=== PATIENT | male | born 1955 | race Caucasian/White ===

== ENCOUNTER 2020-12-03 13:44 | Inpatient (IN) | payer MEDICAID ==
[~2020-12-03] VITALS: Ht 177.8 cm; Wt 67.4 kg
[2020-12-03] MEDS ORDERED: PIPERACILLIN/TAZ 3.375G PREMIX 50 ML IV NR (15:15)
[2020-12-03] MEDS ORDERED: SODIUM CHLORIDE 0.9% 1000ML BAG (SEPSIS BOLUS) IV ONE (15:15)
[2020-12-03] MEDS ORDERED: VANCOMYCIN 750 MG PREMIX 150 ML IV SCH (15:15)
[2020-12-03] MEDS ORDERED: PIPERACILLIN/TAZOBACTAM 3.375GM/50ML PREMIX IV ONE (15:15)
[2020-12-03] MEDS ORDERED: TETANUS, DIPHTHERIA, PERTUSSIS VAC/PF 0.5ML (>7YR OLD) IM ONE (15:30)
[2020-12-03 15:47] LABS: BASOPHILS % 0.5 % (0.0-2.0); HEMATOCRIT. 40.5 % (42.0-52.0); HEMOGLOBIN. 14.1 g/dL (14.0-18.0); LYMPHOCYTES % 47.6 % (20.0-50.0); MEAN CORPUSCULAR HEMOGLOBIN 34.8 pg (28.0-32.0); MEAN CORPUSCULAR VOLUME 99.6 fL (80.0-94.0); MEAN PLATELET VOLUME 6.8 fl (7.4-10.4); NEUTROPHILS % 37.9 % (40.0-76.0); PLATELET 200 x1000/uL (130-400); RED BLOOD CELL COUNT 4.06 mill/uL (4.7-6.1); RED CELL DISTRIBUTION WIDTH 14.9 % (11.6-14.6)
[2020-12-03 15:50] LABS: CHLORIDE 107 mEq/L (98-107)
[2020-12-03 15:52] LABS: PROTHROMBIN TIME 10.4 sec (9.6-11.0)
[2020-12-03] MEDS ORDERED: LORAZEPAM 1MG TABLET PO PRN (18:15)
[2020-12-03] MEDS ORDERED: POTASSIUM CHLORIDE 20MEQ TABLET SR PO SCH (18:15)
[2020-12-03 18:33] LABS: CLARITY URINE CLEAR (CLEAR); COLOR URINE DARK YELLOW (YELLOW); KETONES URINE TRACE (NEGATIVE); LEUKOCYTE ESTERASE URINE NEGATIVE (NEGATIVE); NITRITE URINE NEGATIVE (NEGATIVE); OCCULT BLOOD URINE NEGATIVE (NEGATIVE); PROTEIN URINE 1+ (NEGATIVE); SPECIFIC GRAVITY URINE 1.023 (1.005-1.030)
[2020-12-03 20:10] VITALS: BP 147/84
[2020-12-03] MEDS ORDERED: TIOT4MIS2 IH (20:36)
[2020-12-03] MEDS ORDERED: GABA-532 PO (20:36)
[2020-12-03] MEDS ORDERED: OMEP20TA2 PO (20:36)
[2020-12-03] MEDS ORDERED: DULO30CA52 PO (20:36)
[2020-12-03] MEDS ORDERED: BUDE10.26 IH (20:36)
[2020-12-03] MEDS ORDERED: FOLI-43 PO (20:36)
[2020-12-03] MEDS ORDERED: LORA-249 (20:36)
[2020-12-03] MEDS ORDERED: ATOR10TA69 PO (20:36)
[2020-12-03] MEDS ORDERED: LOSA25TA26 PO (20:36)
[2020-12-03] MEDS ORDERED: LEVO50TA8 PO (20:36)
[2020-12-03] MEDS ORDERED: DES150 PO (20:36)
[2020-12-03 20:39] VITALS: BP 147/84
[2020-12-03] MEDS ORDERED: THIAMINE HCL 100MG TABLET PO NR (21:00)
[2020-12-03] MEDS: GABAPENTIN 300MG CAPSULE PO SCH (21:21)
[2020-12-03] MEDS: ATORVASTATIN CALCIUM 20MG TABLET PO SCH (21:21)
[2020-12-03] MEDS: OMEPRAZOLE 20MG CAPSULE EXTENDED RELEASE PO SCH (21:21)
[2020-12-03] MEDS: TRAZODONE HCL 50MG TABLET PO SCH (21:21)
[2020-12-03] MEDS ORDERED: HYDROCODONE/ACETAMINOPHEN 5/325MG TABLET PO PRN (21:30)
[2020-12-03] MEDS: HYDROCODONE/ACETAMINOPHEN 5/325MG TABLET PO PRN (21:42)
[2020-12-03] MEDS: PIPERACILLIN/TAZOBACTAM 3.375G in DEXT 5% WATER 50ML IV SCH (21:51)
[2020-12-03] MEDS ORDERED: PIPERACILLIN/TAZOBACTAM 3.375 G/VIAL IV SCH (22:00)
[2020-12-04] VITALS (7 sets, daily range): BP systolic 107–155; BP diastolic 74–92
[2020-12-04] MEDS ORDERED: VANCOMYCIN 1250MG in DEXTROSE 5% WATER 250ML IV SCH
[2020-12-04] MEDS: LORAZEPAM 2MG/ML CPJ IV PRN ×3 (00:24→18:19)
[2020-12-04] MEDS: HYDROCODONE/ACETAMINOPHEN 5/325MG TABLET PO PRN ×3 (04:35→16:50)
[2020-12-04] MEDS: PIPERACILLIN/TAZOBACTAM 3.375G in DEXT 5% WATER 50ML IV SCH ×3 (05:09→21:28)
[2020-12-04] MEDS: GABAPENTIN 300MG CAPSULE PO SCH ×3 (05:15→21:28)
[2020-12-04] MEDS: OMEPRAZOLE 20MG CAPSULE EXTENDED RELEASE PO SCH (05:45)
[2020-12-04] MEDS: LEVOTHYROXINE SODIUM 50MCG TABLET PO SCH (05:45)
[2020-12-04] MEDS: FOLIC ACID 1MG TABLET PO SCH (08:57)
[2020-12-04] MEDS: MULTIVITAMINS,THER W-MINERALS TABLET PO SCH (08:57)
[2020-12-04] MEDS: LOSARTAN POTASSIUM 25 MG TABLET PO SCH (08:58)
[2020-12-04] MEDS ORDERED: ACETAMINOPHEN 325MG TABLET PO PRN (09:30)
[2020-12-04] MEDS: VANCOMYCIN 1500MG in DEXTROSE 5% WATER 250ML IV SCH (10:32)
[2020-12-04] MEDS ORDERED: IPRATROPIUM/ALBUTEROL 0.5-3(2.5)MG/3ML NEB HHN PRN (11:45)
[2020-12-04] MEDS: CHLORDIAZEPOXIDE 25MG CAPSULE PO SCH ×2 (13:02→21:28)
[2020-12-04] MEDS: ATORVASTATIN CALCIUM 20MG TABLET PO SCH (21:28)
[2020-12-04] MEDS: TRAZODONE HCL 50MG TABLET PO SCH (21:28)
[2020-12-04] MEDS: FAMOTIDINE 20MG TABLET PO SCH (21:28)
[2020-12-04 22:05] LABS: *AMPHETAMINES SCREEN URINE NEGATIVE (NEGATIVE); *BARBITURATES SCREEN URINE NEGATIVE (NEGATIVE)
[2020-12-04 22:06] LABS: *BENZODIAZEPINES SCREEN URINE PRESUMTIVE POSITIVE (NEGATIVE); *COCAINE SCREEN URINE NEGATIVE (NEGATIVE); METHADONE URINE SCREEN NEGATIVE (NEGATIVE); OPIATES URINE SCREEN PRESUMTIVE POSITIVE (NEGATIVE); PHENCYCLIDINE URINE SCREEN NEGATIVE (NEGATIVE)
[2020-12-04 22:07] LABS: CANNABINOID URINE SCREEN NEGATIVE (NEGATIVE)
[2020-12-05] MEDS: LORAZEPAM 2MG/ML CPJ IV PRN (00:37)
[2020-12-05] MEDS ORDERED: MAGNESIUM 2 G PREMIX 50 ML IV SCH (01:00)
[2020-12-05 03:45] LABS: HEMATOCRIT. 39.6 % (42.0-52.0); HEMOGLOBIN. 13.4 g/dL (14.0-18.0); MEAN CORPUSCULAR HEMOGLOBIN 33.9 pg (28.0-32.0); PLATELET 186 x1000/uL (130-400); RED BLOOD CELL COUNT 3.96 mill/uL (4.7-6.1)
[2020-12-05 03:53] LABS: CHLORIDE 106 mEq/L (98-107)
[2020-12-05 04:00] VITALS: BP 130/78
[2020-12-05] MEDS: PIPERACILLIN/TAZOBACTAM 3.375G in DEXT 5% WATER 50ML IV SCH ×3 (05:25→21:45)
[2020-12-05] MEDS: GABAPENTIN 300MG CAPSULE PO SCH ×3 (05:36→21:38)
[2020-12-05] MEDS: FAMOTIDINE 20MG TABLET PO SCH ×2 (05:36→21:38)
[2020-12-05] MEDS: CHLORDIAZEPOXIDE 25MG CAPSULE PO SCH ×3 (05:36→21:38)
[2020-12-05] MEDS: LEVOTHYROXINE SODIUM 50MCG TABLET PO SCH (05:36)
[2020-12-05] MEDS: VANCOMYCIN 1500MG in DEXTROSE 5% WATER 250ML IV SCH (05:58)
[2020-12-05 08:00] VITALS: BP 133/57
[2020-12-05] MEDS: FOLIC ACID 1MG TABLET PO SCH (09:25)
[2020-12-05] MEDS: THIAMINE HCL 100MG TABLET PO SCH (09:25)
[2020-12-05] MEDS: MULTIVITAMINS,THER W-MINERALS TABLET PO SCH (09:25)
[2020-12-05] MEDS: LOSARTAN POTASSIUM 25 MG TABLET PO SCH (09:25)
[2020-12-05 12:00] VITALS: BP 100/60
[2020-12-05] MEDS ORDERED: POTASSIUM CHLORIDE 20MEQ TABLET SR PO SCH (12:15)
[2020-12-05 14:49] LABS: PLATELET ESTIMATE NORMAL
[2020-12-05 16:00] VITALS: BP 134/89
[2020-12-05] MEDS: VANCOMYCIN 1250MG in DEXTROSE 5% WATER 250ML IV SCH (17:47)
[2020-12-05 20:12] VITALS: BP 142/86
[2020-12-05] MEDS: ATORVASTATIN CALCIUM 20MG TABLET PO SCH (21:38)
[2020-12-05] MEDS: TRAZODONE HCL 50MG TABLET PO SCH (21:38)
[2020-12-06 00:40] VITALS: BP 102/64
[2020-12-06 04:00] VITALS: BP 97/66
[2020-12-06] MEDS: PIPERACILLIN/TAZOBACTAM 3.375G in DEXT 5% WATER 50ML IV SCH ×3 (05:56→22:17)
[2020-12-06] MEDS: CHLORDIAZEPOXIDE 25MG CAPSULE PO SCH ×3 (05:58→22:17)
[2020-12-06] MEDS: GABAPENTIN 300MG CAPSULE PO SCH ×3 (05:58→22:17)
[2020-12-06] MEDS: LEVOTHYROXINE SODIUM 50MCG TABLET PO SCH (05:59)
[2020-12-06] MEDS: FAMOTIDINE 20MG TABLET PO SCH ×2 (05:59→22:17)
[2020-12-06] MEDS: VANCOMYCIN 1250MG in DEXTROSE 5% WATER 250ML IV SCH ×2 (06:32→17:45)
[2020-12-06 08:00] VITALS: BP 112/77
[2020-12-06] MEDS: THIAMINE HCL 100MG TABLET PO SCH (08:59)
[2020-12-06] MEDS: FOLIC ACID 1MG TABLET PO SCH (08:59)
[2020-12-06] MEDS: MULTIVITAMINS,THER W-MINERALS TABLET PO SCH (08:59)
[2020-12-06] MEDS: LOSARTAN POTASSIUM 25 MG TABLET PO SCH (08:59)
[2020-12-06] MEDS: LORAZEPAM 2MG/ML CPJ IV PRN ×3 (09:26→22:18)
[2020-12-06 12:00] VITALS: BP 104/75
[2020-12-06 16:00] VITALS: BP 111/74
[2020-12-06 20:00] VITALS: BP 123/86
[2020-12-06] MEDS: ATORVASTATIN CALCIUM 20MG TABLET PO SCH (22:17)
[2020-12-06] MEDS: TRAZODONE HCL 50MG TABLET PO SCH (22:18)
[2020-12-07] VITALS: BP 126/84
[2020-12-07 04:00] VITALS: BP 113/77
[2020-12-07] MEDS: LORAZEPAM 2MG/ML CPJ IV PRN (04:45)
[2020-12-07] MEDS: PIPERACILLIN/TAZOBACTAM 3.375G in DEXT 5% WATER 50ML IV SCH ×2 (05:51→13:21)
[2020-12-07] MEDS: CHLORDIAZEPOXIDE 25MG CAPSULE PO SCH ×2 (05:51→13:20)
[2020-12-07] MEDS: GABAPENTIN 300MG CAPSULE PO SCH ×2 (05:51→13:20)
[2020-12-07] MEDS: LEVOTHYROXINE SODIUM 50MCG TABLET PO SCH (05:51)
[2020-12-07] MEDS: FAMOTIDINE 20MG TABLET PO SCH (05:51)
[2020-12-07] MEDS: VANCOMYCIN 1250MG in DEXTROSE 5% WATER 250ML IV SCH (06:40)
[2020-12-07 07:12] LABS: CHLORIDE 107 mEq/L (98-107)
[2020-12-07 08:00] VITALS: BP_SYST 110; BP_SYST 112; BP_DIAS 76; BP_DIAS 79
[2020-12-07] MEDS: FOLIC ACID 1MG TABLET PO SCH (08:28)
[2020-12-07] MEDS: MULTIVITAMINS,THER W-MINERALS TABLET PO SCH (08:28)
[2020-12-07] MEDS: LOSARTAN POTASSIUM 25 MG TABLET PO SCH (08:28)
[2020-12-07] MEDS: THIAMINE HCL 100MG TABLET PO SCH (08:29)
[2020-12-07 12:00] VITALS: BP 107/72
[2020-12-07 14:25] VITALS: BP 115/76
== END 2020-12-07 14:40 | disposition home or self-care (01) | DRG 342 ==
LOC: ER 13:44 → 5WST 17:18 → EDBEDREQSVC 17:37 → EDBEDREQTM 17:37 → EDBEDREQ 17:37 → ENRESERV 19:30
PROVIDERS: ADMIT Internal Medicine; ATTEND Internal Medicine
DX: S62.307B Unspecified fracture of fifth metacarpal bone, left hand, initial encounter for open fracture (principal); E43 Unspecified severe protein-calorie malnutrition; F10.129 Alcohol abuse with intoxication, unspecified; E87.6 Hypokalemia; F17.210 Nicotine dependence, cigarettes, uncomplicated; G40.909 Epilepsy, unspecified, not intractable, without status epilepticus; Y90.8 Blood alcohol level of 240 mg/100 ml or more; I10 Essential (primary) hypertension; X58.XXXA Exposure to other specified factors, initial encounter; F10.139 Alcohol abuse with withdrawal, unspecified; Z60.2 Problems related to living alone; Z79.899 Other long term (current) drug therapy; Z71.41 Alcohol abuse counseling and surveillance of alcoholic; Y93.89 Activity, other specified; Y92.89 Other specified places as the place of occurrence of the external cause; Y99.8 Other external cause status; Z68.21 Body mass index [BMI] 21.0-21.9, adult
CPT/HCPCS: 36415; 71045; 73130; 80048; 80053; 80202; 80305; 80320; 81003; 83605; 83735; 84145; 84484; 85025; 90715; 97161; 97535; 97760; 99285; J2060; J2543; J3370; J3475; J7030; J7040; J7060; G0480

== ENCOUNTER 2020-12-15 11:02 | Emergency (ER) | payer MEDICAID ==
[~2020-12-15] VITALS: Ht 177.8 cm; Wt 65.0 kg
[~2020-12-15 11:02] MED LIST: ATOR10TA69 PO; BUDE10.26 IH; DES150 PO; DULO30CA52 PO; FOLI-43 PO; GABA-532 PO; LEVO50TA8 PO; LORA-249; LOSA25TA26 PO; OMEP20TA2 PO; TIOT4MIS2 IH
[2020-12-15 15:40] VITALS: BP 135/89
== END 2020-12-15 15:42 | disposition home or self-care (01) ==
LOC: ER 11:16
DX: F10.229 Alcohol dependence with intoxication, unspecified (principal); Y90.9 Presence of alcohol in blood, level not specified; R00.0 Tachycardia, unspecified; I10 Essential (primary) hypertension; G40.909 Epilepsy, unspecified, not intractable, without status epilepticus; J45.909 Unspecified asthma, uncomplicated; Z86.59 Personal history of other mental and behavioral disorders; Z79.899 Other long term (current) drug therapy
CPT/HCPCS: 93005; 99283

== ENCOUNTER 2020-12-16 19:32 | Emergency (ER) | payer MEDICAID ==
[~2020-12-16] VITALS: Ht 177.8 cm; Wt 73.0 kg
[2020-12-16] MEDS ORDERED: SODIUM CHLORIDE 0.9% 1,000 ML IV ONE (19:45)
[2020-12-16 20:37] LABS: BASOPHILS % 1.2 % (0.0-2.0); EOSINOPHILS % 2.2 % (0.0-5.0); HEMATOCRIT. 44.7 % (42.0-52.0); HEMOGLOBIN. 15.2 g/dL (14.0-18.0); MEAN CORPUSCULAR HEMOGLOBIN 33.7 pg (28.0-32.0); MEAN CORPUSCULAR VOLUME 99.3 fL (80.0-94.0); MEAN PLATELET VOLUME 5.8 fl (7.4-10.4); MONOCYTES % 7.6 % (2.0-8.0); PLATELET 722 x1000/uL (130-400); RED CELL DISTRIBUTION WIDTH 15.1 % (11.6-14.6)
[2020-12-16 20:42] LABS: CHLORIDE 110 mEq/L (98-107)
[2020-12-16 21:14] LABS: ETHANOL BLOOD 326 mg/dL
[2020-12-17 01:40] VITALS: BP 139/87
== END 2020-12-17 02:01 | disposition home or self-care (01) ==
LOC: ER 19:32
DX: R41.82 Altered mental status, unspecified (principal); F10.229 Alcohol dependence with intoxication, unspecified; Y90.0 Blood alcohol level of less than 20 mg/100 ml; J45.909 Unspecified asthma, uncomplicated; F32.9 Major depressive disorder, single episode, unspecified; I10 Essential (primary) hypertension; Z79.899 Other long term (current) drug therapy
CPT/HCPCS: 36415; 80053; 80320; 82962; 85025; 93005; 96360; 96361; 99285; J7030; G0480